=== PATIENT | female | born 1990 | race Caucasian/White ===

== ENCOUNTER 2016-04-19 05:16 | Day surgery (SDC) | payer OTHER ==
[~2016-04-19] VITALS: Ht 170.2 cm; Wt 49.0 kg
--- NOTE | ~2016-04-19 | O ---
[facility] [place] [address] OPERATIVE REPORT Name: BREONNA MIXON Room #: DEP [facility] M.R.#: [id number] Admission: 04/19/16 Attend Phys: Eros Martino MD Discharge: 04/20/16 Date of : 89 Report #: [id number] THIS REPORT FOR: //name// CC: Tabby Brennan Jr, MD DATE OF SERVICE: 04/19/[address] Tabby Hassan, Dr. Eros Martino, Dr. Eric Brennan. PREOPERATIVE DIAGNOSES: Biliary dyskinesia, biliary colic, possible cholecystitis. POSTOPERATIVE DIAGNOSES: Biliary dyskinesia, biliary colic, possible cholecystitis. PROCEDURE: Laparoscopic cholecystectomy with diagnostic laparoscopy. SURGEON: Eros Martino MD. INCLUSION SPECIAL EDUCATOR: Richa Munguia RN. ANESTHESIA: General. DESCRIPTION OF PROCEDURE: The patient was brought to the operating room and placed on operative table in the supine position. Sequential compression devices were in place for DVT prophylaxis. She was given appropriate preoperative dose of antibiotics. The patient underwent a general endotracheal anesthesia and the abdomen was then prepped and draped in a sterile fashion. Skin and subcutaneous tissue was then infiltrated with 0.5% Marcaine and 1% Xylocaine in a 1:1 mixture. An infraumbilical skin incision was then performed using #11 scalpel blade. Hemostasis obtained using electrocautery. Dissection was carried down through subcutaneous tissue to the fascia, which was then grasped between 2 Maxi clamps and incised with curved Braxton scissors. The peritoneum was entered and a pursestring suture of 0 Vicryl was then placed in the fascia. A 12 mm disposable Bonny port was inserted through the opening and held into place with the pursestring suture and the balloon port. An exploration was performed after placement of 2 right upper quadrant 5 mm Surgiport as well as an 11 mm Surgiport under direct visualization and infiltration with 0.5% Marcaine. The gallbladder was grasped and retracted superiorly and pictures were taken of the right upper quadrant, left upper quadrant and pelvis. The gallbladder, liver, spleen, stomach, small intestines, appendix, uterus, tubes, ovaries all looked normal. After completing the abdominal exploration, the gallbladder was grasped and retracted superiorly and [facility] [address] [place] [address] OPERATIVE REPORT Name: BREONNA MIXON [id number] Admission: 04/19/16 Attend Phys: Eros Martino MD Discharge: 04/20/16 Date of : 89 Report #: [id number] the cystic duct and artery were dissected free. The cystic common bile duct junction was clearly identified. The cystic duct was then triply clipped on the common bile duct side and doubly clipped on the gallbladder side and divided with scissors. Cystic artery was then doubly clipped on each side and divided with scissors. There was a posterior branch that was also controlled with 2 clips. Gallbladder was then dissected free from the bed using the hook electrocautery. Prior to completing the dissection, the gallbladder was retracted superiorly and the bed inspected for hemostasis, which was found to be intact. The gallbladder was then transected and brought out through the upper midline port and sent as specimen to pathology. The port was then returned to the abdomen. The area was copiously irrigated with warm saline solution, which was suctioned free, hemostasis was checked and found to be intact. The ports were all removed under direct visualization, hemostasis intact at each port site. Pneumoperitoneum was released and periumbilical port was also removed under direct visualization, hemostasis intact at that port site as well. Periumbilical fascia was then closed using the 0 Vicryl pursestring suture. The upper midline fascia was then closed using a [id number] 0 Vicryl suture. Skin was then closed using interrupted vertical mattress 5-0 nylon sutures and the wound was dressed with Band-Aids. The patient was then awakened from the general endotracheal anesthesia, extubated and taken to recovery room in good condition. Estimated blood loss was approximately 10 mL. The patient tolerated procedure well. All sponge, lap and instrument counts correct times 3. <ELECTRONICALLY SIGNED> By: Eros Martino MD 05/03/16 1334 [id number] Eros Martino MD /nt
--- NOTE | ~2016-04-19 | S ---
[facility] [place] [address] [place] [address] SURGICAL PATH RPT PROCEDURE Name: EMILY ARCHER Room #: DEP [facility] M.R.#: [id number] Admission: 04/19/16 Date of : 89 Discharge: 04/20/16 Report #: [id number] Path Case #: [id number] PATHOLOGY REPORT COLLECTION DATE: 04/19/2016 RECEIVED DATE: 04/19/2016 SUBMITTING PHYS: Dr. Eros Martino OTHER PHYS: Dr. Crista Hassan SPECIMEN(S) RECEIVED: A.Gallbladder * * * * * * * * * * * * FINAL DIAGNOSIS: "Gallbladder," cholecystectomy: - Mild chronic cholecystitis. (CLW:; d/t: 04/20/16) PATHOLOGIST: Maricruz Khan M.D. REPORT ELECTRONICALLY SIGNED BY: Maricruz Khan M.D. DATE/TIME: 04/20/2016 12:37 * * * * * * * * * * * * GROSS PATHOLOGY: Received in formalin labeled "Emily Archer, gallbladder," is a 8.2 x 2.6 x 2.4 cm, intact gallbladder with blue-villarreal serosal surfaces. Opening the gallbladder reveals a velvety, bile-stained mucosa and an average wall thickness of 0.1 cm. Calculi are not present (upon filtration of the gallbladder) and no masses are noted grossly. Gradall Operator sections from the body and fundus are submitted along with the proximal margin in cassette A1. (CAA; 04/19/2016) CLINICAL HISTORY: Gallstones INITIAL CPT CODE(S): A; 66420 Professional services performed by [facility] at [facility] [address], [place] [address] Technical services performed by [facility] at [address] [place] [id number]. [facility] [address] [place] [address] SURGICAL PATH RPT PROCEDURE Name: EMILY ARCHER Room #: DEP [facility].#: [id number] Admission: 04/19/16 Date of : 89 Discharge: 04/20/16 Report #: [id number] Path Case #: [id number] [facility] [address] [address] PHONE: [phone] DIRECTOR: Damaso Bro M.D. * * * END OF REPORT * * *
[~2016-04-19 05:16] MED LIST: LEVOTHYROXINE 0.1 MG PO
[2016-04-19 10:49] VITALS: BP 102/75
[2016-04-19] MEDS ORDERED: NORCO 5-325 TA1 EACH PO (11:54)
[2016-04-19 21:16] VITALS: BP 115/67
[2016-04-19 23:21] VITALS: BP 98/62
[2016-04-20 05:30] VITALS: BP 106/71
[2016-04-20 08:30] VITALS: BP 109/73
[2016-04-20 10:05] VITALS: BP 109/73
== END 2016-04-20 11:30 | disposition home or self-care (01) ==
LOC: OR 05:16 → TBA 05:16 → 5S 05:16 → OR 08:17 → 5S 14:54 → OR 04-20 11:30
DX: K80.50 Calculus of bile duct without cholangitis or cholecystitis without obstruction (principal); K21.9 Gastro-esophageal reflux disease without esophagitis; Z85.850 Personal history of malignant neoplasm of thyroid
CPT/HCPCS: 10785; 50010; 50101; 50411; 50555; 50558; 51474; 51489; 52156; 52266; 53314; 56462; 56524; 56528; 62110; 62900; 70005